=== PATIENT | male | born 1960 | race Caucasian/White ===

== ENCOUNTER 2017-08-25 19:07 | Emergency (ER) | payer OTHER ==
[2017-08-25] MEDS: HYDROCODONE/APAP (5/325) TAB PO (22:55)
== END 2017-08-26 06:25 | disposition left against medical advice (07) ==
LOC: FTE 08-26 06:25
DX: R91.8 Other nonspecific abnormal finding of lung field (principal); I10 Essential (primary) hypertension; F17.210 Nicotine dependence, cigarettes, uncomplicated
CPT/HCPCS: 71250; 73510; 99284-25